=== PATIENT | male | born 1950 | race Two or more races ===

== ENCOUNTER → 2024-10-17 | Emergency (ER) | payer OTHER ==
[~2024-10-17] VITALS: Ht 175.3 cm; Wt 77.1 kg
[~2024-10-17] MED LIST: GABAPENTIN300 M2 PO; GLIMEPIRIDE4 M1 PO; LEVALBUTEROL HCL 0.63 MG/3 ML SOLUTION IH SCH; LEVALBUTEROL HCL 1.25 MG/3 ML SOLUTION IH ONE; LOSARTAN POTASS50 MG PO; METFORMIN HCL1000 M3 PO; METHYLPREDNISOLONE SOD SUCC 125 MG VIAL IV ONE; METHYLPREDNISOLONE SOD SUCC 125 MG VIAL ONE; MONTELUKAST SOD10 MG PO; OMEPRAZOLE40 MG PO; SIMVASTATIN40 MG PO; TREXALL5 MG PO; VENTOLIN HFA18 GM IH; XYZAL5 MG PO
[2024-10-17 12:02] LABS: ABG PO2 102.5 mmHg (80-100); ABG pCO2 25.8 mmHg (35-45); BASE EXCESS -2.3 mmol/l; BICARBONATE 19.2 mmol/l (23-25); SaO2 98.4 %
[2024-10-17 12:15] LABS: allen test SATISFACTORY; o2 21 %; puncture site RADIAL RIGHT
[2024-10-17 12:36] LABS: HEMATOCRIT 37.4 % (39.0-48.0); MEAN CELL VOLUME 84.6 fL (80.0-100.00); MEAN CORPUSCULAR HGB CONC 31.9 g/dl (32.0-36.0); PLATELET COUNT 384 K/uL (150-450); RED BLOOD COUNT 4.42 M/uL (4.00-6.00); RED CELL DISTRIBUTION WIDTH 17.6 % (11.5-14.5)
[2024-10-17 12:38] LABS: HEMOGLOBIN 11.9 g/dL (13-16.00); MEAN CORPUSCULAR HEMOGLOBIN 26.9 pg (27.00-32.0)
== END | disposition home or self-care (01) ==
LOC: ER 10:31
PROVIDERS: Emergency Medicine
DX: J45.909 Unspecified asthma, uncomplicated (principal); Z20.822 Contact with and (suspected) exposure to COVID-19; I10 Essential (primary) hypertension; E11.9 Type 2 diabetes mellitus without complications; Z79.84 Long term (current) use of oral hypoglycemic drugs
CPT/HCPCS: 36415; 82803; 94640; 94760; 96365; 99282; J3490